=== PATIENT | female | born 1985 | race Caucasian/White ===

== ENCOUNTER 2019-02-07 18:05 | Day surgery (SDC) | payer BC ==
[2019-02-07 18:32] VITALS: BMI 56.5
[2019-02-07 18:35] VITALS: BP 123/58; TEMP 98.2
[2019-02-07] MEDS ORDERED: hydrALAZINE 20 MG/ML VIAL SLOW IVP PRN (18:38)
--- NOTE | 2019-02-07 19:04 | PRG ---
DATE OF SERVICE: 02/07/2019 TIME OF SERVICE: 1830 hours. PRESENTING COMPLAINT: Elevated blood pressures in the office. HISTORY OF PRESENT ILLNESS: Ms. Henriquez was sent over from Sandhya Carlos, nurse cyber defense incident responder office for a blood pressures in the 150s/90s. She denies headache, scotoma, or blurred vision. She had negative protein in the office. The patient's previous pregnancies have not been complicated by hypertension. MORTGAGE BANKER HISTORY: x4 of 8 to 10-pound babies. No complications. Miscarriage x1. Blood type O positive. Antibody negative. Pap negative. Rubella immune. VDRL nonreactive. Hepatitis B, GC, and chlamydia negative. The patient's group B strep was positive in urine at new OB visit. MEDICAL HISTORY: Denies. SURGICAL HISTORY: Denies. ALLERGIES: DENIES. MEDICATIONS: vitamins. SOCIAL HISTORY: Denies tobacco, alcohol, or drug use. FAMILY HISTORY: Noncontributory. REVIEW OF SYSTEMS: Noncontributory. PHYSICAL EXAMINATION: GENERAL: Morbidly obese white female. VITAL SIGNS: Serial blood pressures 122 to 128/62 to 70, pulse 85, respirations 18, and temperature 97.6. HEENT: Within normal limits. LUNGS: Clear to auscultation bilaterally. HEART: Regular rhythm. ABDOMEN: Soft and nontender without rebound or guarding. No palpable contractions are noted. No CVA tenderness is noted. VULVA: Without lesions. VAGINA: Exam in office was 350 and -2, cephalic posterior. EXTREMITIES: Without clubbing, cyanosis, or edema. Prolonged monitoring revealed a category one strip. IMPRESSION: No evidence of gestational hypertension with 39 weeks gestation with SHAYLA of 02/13. PLAN: Discharge home. The patient has scheduled followup with Sandhya Carlos next week. ER precautions. Job ID: [id number]
== END 2019-02-07 18:36 | disposition home or self-care (01) ==
LOC: L&D/OP 18:05
PROVIDERS: ATTEND Obstetrics & Gynecology
DX: O99.89 Other specified diseases and conditions complicating pregnancy, childbirth and the puerperium (principal); R03.0 Elevated blood-pressure reading, without diagnosis of hypertension; Z3A.39 39 weeks gestation of pregnancy
CPT/HCPCS: 99282

== ENCOUNTER 2019-02-13 16:02 | Inpatient (IN) | payer BC ==
--- NOTE | 2019-02-13 16:50 | PDOC.LDHP ---
Labor and Delivery H&P Chief complaint: other (blood pressure elevated) HPI: Sent to labor and delivery from the office for elevated blood pressure reading x2. Reports having a FRANCIS every day at night. She denies changes in her vision or RUQ pain. Current gestational age (weeks): 40 Due date: 02/13/18 Grav: 5 Para: 4 Current medications: pre-aixa vitamins Allergies/Adverse Reactions: Allergies Allergy/AdvReac Type Severity Reaction Status Date / Time No Known Allergies Allergy Unverified 02/07/19 18:10 Social history: none - Physical Exam Heart: RRR Lungs: nonlabored breathing Abdomen: gravid - Vaginal Exam cm dilated: 4 Effacement: 75% Station: -2 - Assessment Elevated blood pressures r/o GHTN vs. PreeE - Plan -: Observation for GHTN elevated blood pressures r/o preeclampsia. Will admit and induce if blood pressures are elevated or labs are abnormal.
[2019-02-13 17:23] VITALS: BMI 57.1
[2019-02-13 17:42] LABS: #Eosinphils 0.1 thou/uL (0.0-0.7); #Lymphocytes 1.2 thou/uL (1.20-3.40); #Monocytes 0.6 thou/uL (0.11-0.59); #Neutrophils 9.2 thou/uL (1.40-6.50); %Basophils 0.4 % (0.0-1.0); %Eosinophils 0.7 % (0.0-10.0); %Lymphocytes 10.7 % (21.0-51.0); %Monocytes 5.5 % (0.0-10.0); %Neutrophils 82.8 % (42.0-75.0); Hemoglobin 11.6 g/dL (12.0-16.0); Mean Corpuscular Volume 85.2 fL (78.0-98.0); Mean Platelet Volume 8.3 fL (7.4-10.4); Platelet Count 280 thou/uL (130-400); Red Blood Cell (RBC) Count 4.02 mill/uL (4.20-5.40); White Blood Cell (WBC) Count 11.1 thou/uL (4.8-10.8)
[2019-02-13 18:09] LABS: ALT (SGPT) 15 U/L (8-55); AST (SGOT) 16 U/L (5-34); Albumin 3.3 g/dL (3.5-5.0); Alkaline Phosphatase 156 U/L (40-150); Anion Gap 14 mmol/L (10-20); BUN (Urea Nitrogen) 7 mg/dL (7.0-18.7); Bilirubin, Total 0.4 mg/dL (0.2-1.2); Calc. Creatinine Clearance 274 mL/min (70-130); Calcium 8.6 mg/dL (7.8-10.44); Carbon Dioxide 23 mmol/L (22-29); Chloride 102 mmol/L (98-107); Estimated GFR-MDRD 90; Globulin 3.1 g/dL (2.4-3.5); Glucose 99 mg/dL (70-105); Potassium 3.7 mmol/L (3.5-5.1); Protein, Total 6.4 g/dL (6.0-8.3); Sodium 135 mmol/L (136-145)
--- NOTE | 2019-02-13 19:06 | PDOC.LDHP ---
Labor and Delivery H&P Chief complaint: other (Medically indicated IOL for GHTN.) HPI: Patient was sent from office to /ro GHTN/Parminder. She reports several nights of headaches every night. She has been taking her blood pressures at home and note that they are never elevated but they fluctuate a lot. She reports positive movement. Occasionally has cramping in her back, but denies painful contractions. Current gestational age (weeks): 40 Dating criteria: last menstrual period (and confirmed with 1st trimester US) Grav: 6 Para: 4 OB History Details: Hx of Macrosomia 10+ infant. No injuries. no dystocia. Child was with previous partner Current complications: gestational hypertension Abnormal US findings: No Past Medical History: Morbid Obesity Current medications: pre-aixa vitamins Previous surgical history: none Allergies/Adverse Reactions: Allergies Allergy/AdvReac Type Severity Reaction Status Date / Time No Known Allergies Allergy Verified 02/13/19 17:23 Social history: none - Physical Exam Abnormal vital signs: Mild range Blood pressures. 148-134/80-70s General: NAD Heart: RRR Lungs: nonlabored breathing Abdomen: gravid Extremeties: pitting edema FHT: category 1 - Vaginal Exam cm dilated: 4 Effacement: 75% Station: -2 - OB Labs Blood type: O RH: positive Antibody Screen: negative HIV: negative RPR: negative HEPSAg: negative 1 hour GCT: negative GBS: positive Urine drug screen: negative Rubella: immune - Assessment L&D Assessment: medically indicated induction (for GHTN.) - Plan Plan: admit to L&D, GBS antibiotic prophylaxis -: Will start Pitocin Allow for antibiotic administration and adequate treatment Then AROM with head decent Anticipate . Anticipate macrosomia of fetus
[2019-02-13] MEDS ORDERED: Diphenoxylate HCl/Atropine Tablet PO PRN ×2 (19:14)
[2019-02-13] MEDS ORDERED: Lidocaine 1% (PF) 30 ML VIAL SC PRN (19:14)
[2019-02-13] MEDS ORDERED: NS / Oxytocin 40 units/1000ml 1,000 ML IV PRN (19:14)
[2019-02-13] MEDS ORDERED: HYDROcodone/Acetaminophen 5/325 mg Tablet PO PRN ×2 (19:14)
[2019-02-13] MEDS ORDERED: hydrALAZINE 20 MG/ML VIAL SLOW IVP PRN (19:14)
[2019-02-13] MEDS ORDERED: Carboprost 250 MCG/ML AMP IM PRN (19:14)
[2019-02-13] MEDS ORDERED: Promethazine HCl 25 MG/ML VIAL IM PRN (19:14)
[2019-02-13] MEDS ORDERED: Ibuprofen 800 MG TAB PO PRN (19:14)
[2019-02-13] MEDS ORDERED: Ondansetron PF 4 MG/2 ML Vial IVP PRN (19:14)
[2019-02-13] MEDS ORDERED: Penicillin G Potassium 5 MILL.UNITS in Sodium Chloride 0.9% 100 ML IVPB SCH (19:15)
[2019-02-13] MEDS ORDERED: Lactated Ringer's 1,000 ML IV SCH (19:15)
[2019-02-13] MEDS ORDERED: NS w/ Oxytocin 10 units 500 ML IV SCH (19:15)
[2019-02-13 20:12] LABS: Hemoglobin 12.2 g/dL (12.0-16.0); Mean Corpuscular HGB CONC 33.7 g/dL (32.0-36.0); Mean Corpuscular Hemoglobin 28.6 pg (27.0-31.0); Mean Corpuscular Volume 84.9 fL (78.0-98.0); Platelet Count 298 thou/uL (130-400); RBC Distribution Width 12.2 % (11.5-14.5); Red Blood Cell (RBC) Count 4.24 mill/uL (4.20-5.40); White Blood Cell (WBC) Count 12.5 thou/uL (4.8-10.8)
[2019-02-13 20:53] LABS: Syphilis Antibody Nonreactive (Nonreactive); Syphilis Antibody Index 0.03 S/CO (<1.00 Non-Reactive)
[2019-02-13] MEDS ORDERED: Penicillin G 2.5 MILL.units 2.5 MILL.UNITS in Premix Bag 1 BAG IVPB SCH (23:00)
[2019-02-14 00:36] LABS: HBSAg Index 0.38 S/CO (0-0.99); Hep B Surf Ag Non-Reactive S/CO (NonReactive)
[2019-02-14] MEDS ORDERED: Lidocaine 1% (PF) 30 ML VIAL ONE (02:02)
[2019-02-14] MEDS ORDERED: NS / Oxytocin 40 units/1000ml 1,000 ML ONE (02:02)
--- NOTE | 2019-02-14 02:26 | PDOC.OPDEL ---
OB Operative/Delivery Note Delivery Dr/Surgeon: China Carlos Pre-Delivery Diagnosis: active labor Procedure/Post Delivery Dx: spontaneous vaginal delivery Weeks gestation: 40 Anesthesia: none - Findings A Sex: male Weight: 8 lb 14 oz - 1 min: 8 - 5 min: 9 - Additional Findings/Plan Placenta delivered: spontaneous Repaired Obstetrical Laceration: none Estimated blood loss: 100mL Post delivery plan: routine recovery
[2019-02-14] MEDS ORDERED: Misoprostol 200 MCG TAB VAG PRN (05:48)
[2019-02-14] MEDS ORDERED: Benzocaine-Menthol 82.5 ML CAN TOP PRN (05:48)
[2019-02-14] MEDS ORDERED: NS / Oxytocin 40 units/1000ml 1,000 ML IV SCH (05:48)
[2019-02-14] MEDS ORDERED: Bisacodyl 10 MG SUPP PR PRN (05:48)
[2019-02-14] MEDS ORDERED: HYDROcodone/Acetaminophen 5/325 mg Tablet PO PRN ×2 (05:48)
[2019-02-14] MEDS ORDERED: Milk Of Magnesia 30 ML UDCUP PO PRN (05:48)
[2019-02-14] MEDS ORDERED: hydrALAZINE 20 MG/ML VIAL SLOW IVP PRN (05:48)
[2019-02-14] MEDS: Prenatal Vitamin 1 TAB PO SCH (08:01)
[2019-02-14] MEDS: Docusate Calcium (SURFAK) 240 MG CAP PO SCH ×2 (08:01→21:39)
[2019-02-14] MEDS: Ferrous Sulfate 325 MG TAB PO SCH ×2 (08:02→16:35)
[2019-02-14] MEDS: Ibuprofen 800 MG TAB PO SCH ×3 (08:02→18:05)
[2019-02-14] MEDS ORDERED: Adacel (T-DAP) 0.5 ML SYRINGE IM ONE (21:00)
--- NOTE | 2019-02-14 22:24 | PDOC.PP ---
Post Progress Note Post Day #: 0 PO intake tolerated: yes Flatus: yes Ambulation: yes Vital Signs (12 hours) Temp Pulse Resp BP 02/14/19 16:36 98.3 F 70 20 121/59 L 02/14/19 11:35 98.1 F 83 20 124/62 Weight Weight 354 lb - Physical Examination General: NAD Cardiovascular: no m/r/g, RRR Respiratory: clear to auscultation bilaterally, non-labored breathing Abdominal: + bowel sounds, lochia (minimal rubra) Extremities: negative homans (B) Skin: no rash Neurological: no gross focal deficits Psychiatric: A&Ox3, normal affect Result Diagrams: 02/13/19 19:57 02/13/19 17:35 Additional Labs: Post Labs Blood Type O POSITIVE 02/13/19 19:57 Hep Bs Antigen Non-Reactive S/CO (NonReactive) 02/13/19 19:58 (1) (spontaneous vaginal delivery) Code(s): O80 - ENCOUNTER FOR FULL-TERM UNCOMPLICATED DELIVERY Status: Acute (2) Gestational hypertension Code(s): O13.9 - GESTATIONAL HTN W/O SIGNIFICANT PROTEINURIA, UNSP TRIMESTER Status: Acute (3) Morbid (severe) obesity due to excess calories Code(s): E66.01 - MORBID (SEVERE) OBESITY DUE TO EXCESS CALORIES Status: Acute - Assessment/Plan A; sp followig IOL for HTN. NML PPD 0 exam P routine care
[2019-02-14] MEDS ORDERED: Lanolin Ointment 7 GM TUBE TOP PRN (22:41)
[2019-02-15] MEDS: Ibuprofen 800 MG TAB PO SCH ×3 (01:54→22:38)
[2019-02-15] MEDS: Ferrous Sulfate 325 MG TAB PO SCH ×2 (09:21→17:57)
[2019-02-15] MEDS: Docusate Calcium (SURFAK) 240 MG CAP PO SCH ×2 (09:24→22:38)
[2019-02-15] MEDS: Prenatal Vitamin 1 TAB PO SCH (09:24)
--- NOTE | 2019-02-15 12:57 | PDOC.PP ---
Post Progress Note Post Day #: 1 Subjective: Patient is upset because of her baby having to be under lights. she does not understand and feels like the nursing staff is being unreasonable because he has to be under lights for 3 hours and can only feed for 30 minutes at a time. PO intake tolerated: yes Flatus: yes Ambulation: yes Vital Signs (12 hours) Temp Pulse Resp BP Pulse Ox 02/15/19 07:51 97.9 F 75 16 123/65 95 02/15/19 01:50 98.1 F 80 18 113/56 L Weight Weight 354 lb - Physical Examination General: NAD Cardiovascular: no m/r/g, RRR Respiratory: non-labored breathing Abdominal: + bowel sounds, lochia (minimal) Skin: no rash Psychiatric: A&Ox3, normal affect Result Diagrams: 02/13/19 19:57 02/13/19 17:35 Additional Labs: Post Labs Blood Type O POSITIVE 02/13/19 19:57 Hep Bs Antigen Non-Reactive S/CO (NonReactive) 02/13/19 19:58 (1) (spontaneous vaginal delivery) Code(s): O80 - ENCOUNTER FOR FULL-TERM UNCOMPLICATED DELIVERY Status: Acute (2) Gestational hypertension Code(s): O13.9 - GESTATIONAL HTN W/O SIGNIFICANT PROTEINURIA, UNSP TRIMESTER Status: Acute (3) Morbid (severe) obesity due to excess calories Code(s): E66.01 - MORBID (SEVERE) OBESITY DUE TO EXCESS CALORIES Status: Acute - Assessment/Plan A: now P5 s/p following IOL for GHTN P: routine care Discharge home when infant is discharged. Encouraged to wear sunglasses if she is holding the while under the lights.
--- NOTE | 2019-02-16 00:39 | PDOC.PP ---
Post Progress Note Post Day #: 2 Subjective: doing well personally. is not going great because was fussy and is still under light. Pt passed on clot after walking to nursery. Sh has already had a bowel movement. PO intake tolerated: yes Flatus: yes Ambulation: yes Vital Signs (12 hours) Temp Pulse Resp BP 02/15/19 16:55 98.3 F 87 20 139/75 Weight Weight 354 lb - Physical Examination General: NAD Cardiovascular: no m/r/g, RRR Respiratory: non-labored breathing Abdominal: lochia (minimal) Extremities: negative homans (B) Skin: no rash Neurological: no gross focal deficits Psychiatric: A&Ox3, normal affect Result Diagrams: 02/13/19 19:57 02/13/19 17:35 Additional Labs: Post Labs Blood Type O POSITIVE 02/13/19 19:57 Hep Bs Antigen Non-Reactive S/CO (NonReactive) 02/13/19 19:58 (1) (spontaneous vaginal delivery) Code(s): O80 - ENCOUNTER FOR FULL-TERM UNCOMPLICATED DELIVERY Status: Acute (2) Gestational hypertension Code(s): O13.9 - GESTATIONAL HTN W/O SIGNIFICANT PROTEINURIA, UNSP TRIMESTER Status: Acute (3) Morbid (severe) obesity due to excess calories Code(s): E66.01 - MORBID (SEVERE) OBESITY DUE TO EXCESS CALORIES Status: Acute - Assessment/Plan A; s/p following IOL for GHT P: discharge home 6 week visit.
[2019-02-16] MEDS: Ibuprofen 800 MG TAB PO SCH (06:32)
[2019-02-16 09:08] VITALS: BP 117/62; TEMP 97.6
[2019-02-16] MEDS: Prenatal Vitamin 1 TAB PO SCH (09:22)
[2019-02-16] MEDS: Docusate Calcium (SURFAK) 240 MG CAP PO SCH (09:23)
[2019-02-16] MEDS: Ferrous Sulfate 325 MG TAB PO SCH (09:23)
== END 2019-02-16 11:50 | disposition home or self-care (01) | DRG 807 ==
LOC: L&D/OP 16:02 → L&D 19:18 → 3SW 02-14 04:51
PROVIDERS: ADMIT Student in an Organized Health Care Education/Training Program; ATTEND Student in an Organized Health Care Education/Training Program
PROC: 10E0XZZ Delivery of Products of Conception, External Approach (ICD-10-PCS; principal; 2019-02-14)
PROC: 10907ZC Drainage of Amniotic Fluid, Therapeutic from Products of Conception, Via Natural or Artificial Opening (ICD-10-PCS; 2019-02-14)
PROC: 3E033VJ Introduction of Other Hormone into Peripheral Vein, Percutaneous Approach (ICD-10-PCS; 2019-02-14)
DX: O13.4 Gestational [pregnancy-induced] hypertension without significant proteinuria, complicating childbirth (principal); Z37.0 Single live birth; O48.0 Post-term pregnancy; Z3A.40 40 weeks gestation of pregnancy; O99.824 Streptococcus B carrier state complicating childbirth; O99.214 Obesity complicating childbirth; E66.01 Morbid (severe) obesity due to excess calories
CPT/HCPCS: 36415; 80053; 81003; 85025; 86780; 86850; 86900; 86901; 87340; 99285; J2001; J2540; J2590; J3490